=== PATIENT | female | born 1995 ===

== ENCOUNTER 2025-05-03 04:07 | Emergency (ER) | payer SELFPAY ==
[2025-05-03 04:20] VITALS: BP 138/77; PULSE 99; RESP 18; TEMP 36.8; O2SAT 100; BMI 37.0
--- NOTE | 2025-05-03 04:27 | XR_ITS ---
Examination: Shoulder, right, 3 views Technique: Shoulder AP internal rotation, AP external rotation, Y view shoulder, 3 views Exam date and time : May 03, 2025, 0427 hours INDICATIONS: Shoulder pain today. FINDINGS: The humeral head is low in position relative to the bony glenoid fossa No fracture IMPRESSION: The humeral head is low in position relative to the bony glenoid fossa, recommend an axial view of the shoulder follow-up
--- NOTE | 2025-05-03 04:59 | PD.EDRME ---
Rapid Medical Screening Exam RME Arrival date/time: 05/03/25 04:07 Chief Complaint: Extremity Problem,Nontraumatic Time Seen by Provider: 05/03/25 04:15 Vital signs: Vital Signs Temperature 98.2 F 05/03/25 04:20 Pulse Rate 99 05/03/25 04:20 Respiratory Rate 18 05/03/25 04:20 Blood Pressure 138/77 H 05/03/25 04:20 Pulse Oximetry (%) 100 05/03/25 04:20 Oxygen Delivery Method Room Air 05/03/25 04:20 RME Narrative: 30-year-old female presents to the ER complaining of right shoulder pain which is atraumatic in nature since last night. Denies any fever, numbness, tingling, weakness. I briefly performed a screening evaluation to initiate work-up and expedite care. Complete history, physical exam, and plan of care is deferred to the provider in the main ED. Exam: Head: Normocephalic, atraumatic. Respiratory: Normal effort. No respiratory distress or accessory muscle use. Neuro: Speech normal. Extremity: Tenderness to right deltoid. Skin: Warm, dry, normal color. Psych: Pleasant. Normal affect. Cooperative. Clinical Impression: Shoulder pain
== END 2025-05-03 05:25 | disposition left against medical advice (07) ==
PROVIDERS: Emergency Provider Emergency Medicine
DX: M25.511 Pain in right shoulder (principal); Z53.29 Procedure and treatment not carried out because of patient's decision for other reasons
CPT/HCPCS: 73030; 81025; 99282